=== PATIENT | male | born 1975 | race American Indian/Alaskan Native ===

== ENCOUNTER 2018-02-10 13:55 | Emergency (ER) | payer BC ==
[2018-02-10] MEDS ORDERED: MOTRIN PO ONE (17:05)
[2018-02-10] MEDS ORDERED: CLEOCIN PO ONE (17:05)
--- NOTE | 2018-02-10 17:10 | Emergency Department Report ---
ED Extremity Problem HPI - General Chief complaint: Extremity Problem,Nontraumatic Stated complaint: RIGHT SWOLLEN HAND Time Seen by Provider: 02/10/18 16:45 Source: patient Mode of arrival: Ambulatory Limitations: No Limitations - History of Present Illness Initial comments: Patient is a 42-year-old -[place] male who is presenting with right hand pain. Patient states that at the base of the thumb and the space between the thumb and first finger he's had some increased swelling. Patient does not remember any trauma to this area but he does work with his hands in a woodworking shop and thinks something could have punctured his hand while working. Patient definite states he didn't have any lacerations or any crush injuries. Patient over the last 2-3 days had increased swelling. There is warm and tender with pain is aching and 6 out of 10 in severity. Patient is able to move his thumb but states it's decreased secondary to tightness from the swelling. Patient denies any fevers chills nausea vomiting at this time. - Related Data Previous Rx's Medication Instructions Recorded Last Taken Type Clindamycin [Clindamycin CAP] 300 mg PO Q8H 7 Days cap 02/10/18 Unknown Rx HYDROcodone/APAP 5-325 [Dierks 1 each PO Q6HR PRN #15 tablet 02/10/18 Unknown Rx 5/325] Ibuprofen [Motrin] 800 mg PO Q8HR PRN #20 tablet 02/10/18 Unknown Rx Allergies Allergy/AdvReac Type Severity Reaction Status Date / Time No Known Allergies Allergy Unverified 02/10/18 14:22 ED Review of Systems ROS: Stated complaint: RIGHT SWOLLEN HAND Other details as noted in HPI Comment: All other systems reviewed and negative ED Past Medical Hx - Past Medical History Previous Medical History?: Yes Hx Hypertension: Yes - Surgical History Past Surgical History?: No - Social History Smoking Status: Current Every Day Smoker Substance Use Type: None - Medications Home Medications: Home Medications Medication Instructions Recorded Confirmed Last Taken Type Clindamycin [Clindamycin CAP] 300 mg PO Q8H 7 Days cap 02/10/18 Unknown Rx HYDROcodone/APAP 5-325 [Dierks 1 each PO Q6HR PRN #15 tablet 02/10/18 Unknown Rx 5/325] Ibuprofen [Motrin] 800 mg PO Q8HR PRN #20 tablet 07/14/18 Unknown Rx ED Physical Exam - General Limitations: No Limitations General appearance: alert, in no apparent distress - Head Head exam: Present: atraumatic, normocephalic - Eye Eye exam: Present: normal appearance - ENT ENT exam: Present: mucous membranes moist - Neck Neck exam: Present: normal inspection - Respiratory Respiratory exam: Present: normal lung sounds bilaterally. Absent: respiratory distress - Cardiovascular Cardiovascular Exam: Present: regular rate, normal rhythm. Absent: systolic murmur, diastolic murmur, rubs, gallop - GI/Abdominal GI/Abdominal exam: Present: soft, normal bowel sounds - Rectal Rectal exam: Present: deferred - Extremities Exam Extremities exam: Present: tenderness - Expanded Upper Extremity Exam Right Vascular: Present: normal capillary refill. Absent: vascular compromise, pulse deficit radial art - Back Exam Back exam: Present: normal inspection - Neurological Exam Neurological exam: Present: alert, oriented X3 - Psychiatric Psychiatric exam: Present: normal affect, normal mood - Skin Skin exam: Present: warm, dry, intact, normal color. Absent: rash ED Course Vital Signs 02/10/18 14:16 Temperature 98.6 F Pulse Rate 83 Respiratory 16 Rate Blood Pressure 181/108 O2 Sat by Pulse 99 Oximetry ED Medical Decision Making - Medical Decision Making Patient appears to have a cellulitis in the right hand. Patient will be started on clindamycin and pain meds and be discharged home. Critical care attestation.: If time is entered above; I have spent that time in minutes in the direct care of this critically ill patient, excluding procedure time. ED Disposition Clinical Impression: Cellulitis and abscess of hand Disposition: DC-01 TO HOME OR SELFCARE Is pt being admited?: No Does the pt Need Aspirin: No Condition: Stable Instructions: Cellulitis (ED) Referrals: JUSTICE ALEXANDER MD [Staff Physician] - 3-5 Days
[2018-02-10 17:27] VITALS: BP 136/72
== END 2018-02-10 17:34 | disposition home or self-care (01) ==
LOC: ED 13:55
DX: L03.113 Cellulitis of right upper limb (principal); I10 Essential (primary) hypertension; F17.200 Nicotine dependence, unspecified, uncomplicated
CPT/HCPCS: 99282